=== PATIENT | female | born 1965 | race Caucasian/White ===

== ENCOUNTER 2017-01-27 01:04 | Emergency (ER) | payer OTHER ==
[~2017-01-27] VITALS: Ht 175.3 cm; Wt 113.5 kg
[~2017-01-27 01:04] MED LIST: ALBUAER2; ANT25 PO; AZITTAB PO; BCPILLS; BCPILLS PO; CYM60 PO; ELET40TA PO; ERGO1CAP35 PO; FLX10 PO; LRT5 PO; ONDA4TAB46 PO; TRZUNK PO; ZMG5 PO
[2017-01-27 01:05] VITALS: TEMP 36.7; Ht 175.3 cm; Wt 113.5 kg
[2017-01-27] MEDS ORDERED: ACETAMINOPHEN 500 MG TAB PO STA (01:21)
--- NOTE | 2017-01-27 01:38 | EMERGENCY ROOM VISIT NOTE ---
History Report prepared by Conchis: Ronaldo Serrano Under the Supervision of: Dr. Dipti Gaspar D.O. First contact with patient: 01:12 Chief Complaint: FALL Stated Complaint: FELL-HURT LEFT LEG,HIT HEAD History of Present Illness The patient is a 51 year old female who presents to the Emergency Room following a falling episode that occurred shortly prior to arrival. The patient states that she tripped over a dog gate in her home and fell onto her left knee. She also hit her head on the corner of the wall during the fall. The patient denies any loss of consciousness from hitting her head. She is currently complaining of pain in her left leg from her knee to her ankle, and denies any other injuries at this time. Source of History: patient Onset: Shortly OPTOMETRIC ASSISTANT Position: knee (left) Quality: other (Fall, left knee pain) Associated Symptoms: No LOC Review of Systems See HPI for pertinent positives & negatives. A total of 10 systems reviewed and were otherwise negative. Past Medical & Surgical Medical Problems: (1) Migraines Family History Cancer Diabetes mellitus Hypertension Social History Smoking Status: Never Smoker Drug Use: none Marital Status: Housing Status: lives with significant other Occupation Status: employed Current/Historical Medications Scheduled Azithromycin (Z-Allen) (Zithromax (Z-Allen)), 250 MG PO DAILY Control Pills ( Control Pills), 1 TAB PO DAILY Cyclobenzaprine Hcl (Flexeril *), 10 MG PO TID PRN Duloxetine Hcl (Cymbalta *), 120 MG PO DAILY Eletriptan (Relpax), 40 MG PO DIRECTED Ergocalciferol (Vitamin D Cap), 1 TAB PO WK Hydrocodone/Acetaminophen 5MG/500MG (Vicodin 5MG/500MG), 1 TAB PO Q4H Meclizine (Antivert *), 25 MG PO TID PRN Ondansetron Hcl (Zofran), 4 MG PO Q6HR PRN Trazodone Hcl (Trazodone Unkown Dose), 225 MG PO HS Zolmitriptan (Zomig *), 5 MG PO PRN/UD Miscellaneous Medications Albuterol (Ventolin) Control Pills ( Control Pills) Allergies Coded Allergies: Penicillins (Unverified Allergy, Mild, 09/03/09) Sulfa Drugs (Unverified Allergy, Mild, 09/03/09) Ketorolac Tromethamine (Verified Allergy, Unknown, Unknown, 11/04/14) Physical Exam Vital Signs Date Time Temp Pulse Resp B/P (MAP) Pulse Ox O2 Delivery O2 Flow Rate FiO2 01/27/17 02:43 78 18 159/82 98 Room Air 01/27/17 01:05 36.7 88 18 140/86 95 Room Air Physical Exam HEENT: Head - There is a cephalohematoma on the right temporoparietal region of the scalp. Pupils are equal, round, and reactive to light. Extraocular eye muscles are intact and sclera are anicteric. Ears - bilaterally patent canals with no evidence of hemotympanum. Nose - moist nasal mucosa without evidence of trauma or discharge. Mouth - moist buccal mucosa with no trauma to the teeth or signs of malocclusion. Neck: The neck is supple and there is no pain to palpation over the posterior cervical spine and no obvious step-offs or deformities. There is no JVD or tracheal deviation. Chest: There are no signs of deformities, contusions or abrasions to the chest wall. There is no obvious crepitus or paradoxical chest rise. Heart: Regular, rate, and rhythm. There is a normal S1 and S2 with no murmurs, clicks, or gallops appreciated. Lungs: Clear to auscultation bilaterally with no wheezes, rales, or rhonchi. Abdomen: Soft, completely nontender, nondistended, with good bowel sounds. There is no sign of trauma such as contusions, abrasions or penetrations. There are no palpable pulsatile masses or hepatosplenomegaly. There is no guarding, rigidity, or rebound noted. Pelvis: Stable to rock and compression. Extremities: There is a contusion, abrasion, and edema to the left knee. There are easily palpable peripheral pulses. Neuro: The patient is awake and alert and easily able to follow commands. Muscle strength is 5 out of 5 in all 4 extremities. Otherwise, neuro exam is unremarkable. Back: The entire thoracic, lumbar, and sacral spine were palpated. There are no obvious step-offs or deformities noted. There are no obvious signs of trauma such as contusions abrasions penetrations noted to the back. Medical Decision & Procedures ER Provider Diagnostic Interpretation: Radiology results as stated below per my review and the radiologist's interpretation: LEFT KNEE 2 VIEWS CLINICAL HISTORY: Left knee injury. Fall. FINDINGS: AP and crosstable lateral views of left knee are obtained. No prior studies are available for comparison at the time of dictation. The skeletal structures are well mineralized. No fracture is seen. The joint spaces of the knee are well-maintained. There is no large joint effusion. The overlying soft tissues are within normal limits. IMPRESSION: No acute bony abnormality is seen in the left knee. Electronically signed by: Freddie Jain M.D. 01/27/2017 1:56 AM Dictated Date/Time: 01/27/2017 1:55 AM Medications Administered Medications (Trade) Dose Ordered Sig/Edgar Route Start Time Stop Time Status Last Admin Dose Admin Acetaminophen (Tylenol Tab) 1,000 mg NOW STAT PO 01/27/17 01:21 01/27/17 01:22 DC 01/27/17 01:28 1,000 MG Oxycodone/ Acetaminophen (Percocet 5/ 325MG Home Pack) 1 homepack UD ONCE PO 01/27/17 02:15 01/27/17 02:16 DC 01/27/17 02:37 1 HOMEPACK Procedure Medications Ordered: Tylenol, Oxycodone ED Course 0116: Past medical records reviewed. The patient was evaluated in room A11. A complete history and physical exam was performed. 0121: Ordered Tylenol 1000 mg PO. The patient went for plain x-rays of the left knee as described above. 0210: I reevaluated the patient at this time. She has had minimal relief with the Tylenol and requests something stronger to take home. I tried Ligamentous testing on the patient, which she could not tolerate. The patient will be discharged home on crutches to weight-bear as tolerated.. 0215: Ordered Oxycodone 1 homepack PO. Medical Decision The patient is a 51 year old female who presents to the Emergency Department with left knee pain following a falling episode. Differential Diagnosis include; Sprained knee, fracture, concussion, closed head injury, and skull fracture Blood Pressure Screening: Patient was found to have a slightly elevated blood pressure due to circumstances and pain. I do not believe that the patient requires hypertension monitoring. I attest that I have personally reviewed the patient's current medication list. This is a 51-year-old female patient who fell landing on her left knee and striking her head. She didn't loss of consciousness. She had no altered mental status following the fall. X-ray shows no evidence of an acute fracture. I was unable to perform ligamentous testing on the patient because of her pain. Ice was applied to the knee. She was given a Percocet home pack to use for pain. She will use crutches until she can bear weight. I've given her follow-up instructions for orthopedics if necessary. Impression Primary Impression: Contusion of left knee Additional Impression: Closed head injury without concussion Scribe Attestation The scribe's documentation has been prepared under my direction and personally reviewed by me in its entirety. I confirm that the note above accurately reflects all work, treatment, procedures, and medical decision making performed by me. Departure Information Dispostion Home / Self-Care Referrals Srinivas German D.O. (PCP) Forms HOME CARE DOCUMENTATION FORM, IMPORTANT VISIT INFORMATION Patient Instructions My [facility] Additional Instructions Rest. Use crutches until able to bear og on the left knee. Follow up with Ortho by Sunday or Sunday if pain persists. Use percocet - 1 tab. every 4 hours for pain. Otherwise use tylenol Problem Qualifiers Primary Impression: Contusion of left knee Encounter type: initial encounter Qualified Codes: S80.02XA - Contusion of left knee, initial encounter Additional Impression: Closed head injury without concussion Encounter type: initial encounter Qualified Codes: S09.90XA - Unspecified injury of head, initial encounter
--- NOTE | 2017-01-27 01:57 | DIAGNOSTIC IMAGING REPORT ---
LEFT KNEE 2 VIEWS CLINICAL HISTORY: Left knee injury. Fall. FINDINGS: AP and crosstable lateral views of left knee are obtained. No prior studies are available for comparison at the time of dictation. The skeletal structures are well mineralized. No fracture is seen. The joint spaces of the knee are well-maintained. There is no large joint effusion. The overlying soft tissues are within normal limits. IMPRESSION: No acute bony abnormality is seen in the left knee. Electronically signed by: Freddie Jain M.D. 01/27/2017 1:56 AM Dictated Date/Time: 01/27/2017 1:55 AM
[2017-01-27] MEDS ORDERED: PERCOCET HOME PACK PO ONE (02:15)
[2017-01-27 02:43] VITALS: BP 159/82; PULSE 78; O2SAT 98
== END 2017-01-27 02:44 | disposition home or self-care (01) ==
LOC: C.EDB 01:05 → C.EDA 02:44
DX: S80.02XA Contusion of left knee, initial encounter (principal); S00.03XA Contusion of scalp, initial encounter; W18.09XA Striking against other object with subsequent fall, initial encounter; Y92.009 Unspecified place in unspecified non-institutional (private) residence as the place of occurrence of the external cause; Z80.9 Family history of malignant neoplasm, unspecified; Z83.3 Family history of diabetes mellitus; Z82.49 Family history of ischemic heart disease and other diseases of the circulatory system; Z79.3 Long term (current) use of hormonal contraceptives; Z79.899 Other long term (current) drug therapy

== ENCOUNTER 2017-01-27 23:22 | Emergency (ER) | payer OTHER ==
[~2017-01-27] VITALS: Ht 175.3 cm; Wt 98.0 kg
[2017-01-27 23:39] VITALS: TEMP 36.7; Ht 175.3 cm; Wt 98.0 kg
[2017-01-27] MEDS ORDERED: SODIUM CHLORIDE 0.9% 500ML 500 ML IV STA (23:49)
[2017-01-27] MEDS ORDERED: HYDROmorphone INJ 2 MG/ML SYR/VIAL IV STA (23:49)
[2017-01-27] MEDS ORDERED: ONDANSETRON INJ 2 MG/ML 2 ML VIAL IV STA (23:49)
[2017-01-27] MEDS ORDERED: MoRPHine SULFATE 10 MG/ML CARP/VIAL IV STA (23:58)
[2017-01-28] MEDS ORDERED: MoRPHine SULFATE 4 MG/ML 1 ML CARP\\VIAL ONE (00:04)
[2017-01-28] MEDS ORDERED: MoRPHine SULFATE 2 MG/ML CARP ONE (00:04)
[2017-01-28 00:20] LABS: BASO % 0.3 %; BASO ABS # 0.02 K/uL (0-0.2); COMPLETE YES; IG% 0.1 %; LYMPH ABS # 2.33 K/uL (1.2-3.4); MEAN CELL VOLUME 85.7 fL (80-100); MEAN CORPUSCULAR HEMOGLOBIN 27.8 pg (25-34); MEAN CORPUSCULAR HGB CONC 32.5 g/dl (32-36); MEAN PLATELET VOLUME 10.8 fL (7.4-10.4); MONO % 7.1 %; NEUT % 57.5 %; PLATELET COUNT 339 K/uL (130-400); RED BLOOD COUNT 4.67 M/uL (4.2-5.4); WHITE BLOOD COUNT 7.76 K/uL (4.8-10.8)
--- NOTE | 2017-01-28 00:27 | EMERGENCY ROOM VISIT NOTE ---
History Report prepared by Conchis: Rox Deras Under the Supervision of: Dr. Dipti Gaspar D.O. First contact with patient: 23:33 Chief Complaint: HEADACHE Stated Complaint: VOMITING, SEVERE HEADACHE History of Present Illness The patient is a 51 year old female who presents to the Emergency Room with complaints of a worsening headache for the past 1 day. She is accompanied by her . The patient was seen here in the ED yesterday after a fall. She tripped over a dog gate and fell onto her left knee, hitting her right forehead off a wall. She did not sustain any LOC. At the ED visit last night, she had her left knee X-Rayed, was placed on crutches and discharged home. The patient reports she started experiencing a headache this afternoon and her pain has been worsening. She rates her pain as a 10/10 in severity. She is also nauseous and started vomiting earlier today. Percocet at 2200 has provided minimal relief. Source of History: patient Onset: Yesterday Position: head Symptom Intensity: 10/10 Timing: worsening Modifying Factors (Relieving): narcotics (Percocet) Associated Symptoms: + nausea, + vomiting Review of Systems See HPI for pertinent positives & negatives. A total of 10 systems reviewed and were otherwise negative. Past Medical & Surgical Medical Problems: (1) Migraines Family History Cancer Diabetes mellitus Hypertension Social History Smoking Status: Never Smoker Smokeless Tobacco Use: No Alcohol Use: occasionally Drug Use: none Marital Status: Housing Status: lives with significant other Occupation Status: employed Current/Historical Medications Scheduled Azithromycin (Z-Allen) (Zithromax (Z-Allen)), 250 MG PO DAILY Control Pills ( Control Pills), 1 TAB PO DAILY Cyclobenzaprine Hcl (Flexeril *), 10 MG PO TID PRN Duloxetine Hcl (Cymbalta *), 120 MG PO DAILY Eletriptan (Relpax), 40 MG PO DIRECTED Ergocalciferol (Vitamin D Cap), 1 TAB PO WK Hydrocodone/Acetaminophen 5MG/500MG (Vicodin 5MG/500MG), 1 TAB PO Q4H Meclizine (Antivert *), 25 MG PO TID PRN Ondansetron Hcl (Zofran), 4 MG PO Q6HR PRN Trazodone Hcl (Trazodone Unkown Dose), 225 MG PO HS Zolmitriptan (Zomig *), 5 MG PO PRN/UD Miscellaneous Medications Albuterol (Ventolin) Control Pills ( Control Pills) Allergies Coded Allergies: Penicillins (Unverified Allergy, Mild, 09/03/09) Sulfa Drugs (Unverified Allergy, Mild, 09/03/09) Ketorolac Tromethamine (Verified Allergy, Unknown, Unknown, 11/04/14) Physical Exam Vital Signs Date Time Temp Pulse Resp B/P (MAP) Pulse Ox O2 Delivery O2 Flow Rate FiO2 01/28/17 02:13 71 18 121/75 93 01/27/17 23:39 36.7 73 19 149/90 95 Room Air Physical Exam General: The patient is photophobic on exam. HEENT: Head - normocephalic and atraumatic Pupils are equal, round, and reactive to light. Extraocular eye muscles are intact, and sclera are anicteric. Nose - moist nasal mucosa without discharge. Mouth - moist buccal mucosa. Oropharynx is nonerythematous and there is no tonsillar exudate or edema noted. Neck: Supple; no JVD, nuchal rigidity, cervical lymphadenopathy. Heart: Regular rate and rhythm. There is a normal S1 and S2 with no murmurs, clicks, or gallops appreciated. Lungs: Clear to auscultation bilaterally with no wheezes, rales, or rhonchi. Abdomen: Soft, completely nontender, nondistended, with good bowel sounds. There are no palpable pulsatile masses or hepatosplenomegaly. There is no guarding, rigidity, or rebound noted. Extremities: Contusion to left knee. There are easily palpable peripheral pulses. Skin: warm and dry with good turgor and no rashes. Medical Decision & Procedures ER Provider Diagnostic Interpretation: Radiology results as stated below per my review and interpretation: L-SPINE X-RAY No obvious compression fracture or disc space narrowing. Mild degenerative changes seen. Laboratory Results 01/27/17 23:52 Red Blood Count 4.67, Mean Corpuscular Volume 85.7, Mean Corpuscular Hemoglobin 27.8, Mean Corpuscular Hemoglobin Concent 32.5, Mean Platelet Volume 10.8, Neutrophils (%) (Auto) 57.5, Lymphocytes (%) (Auto) 30.0, Monocytes (%) (Auto) 7.1, Eosinophils (%) (Auto) 5.0, Basophils (%) (Auto) 0.3, Neutrophils # (Auto) 4.46, Lymphocytes # (Auto) 2.33, Monocytes # (Auto) 0.55, Eosinophils # (Auto) 0.39, Basophils # (Auto) 0.02 01/27/17 23:52 Test 01/27/17 23:52 White Blood Count 7.76 K/uL (4.8-10.8) Red Blood Count 4.67 M/uL (4.2-5.4) Hemoglobin 13.0 g/dL (12.0-16.0) Hematocrit 40.0 % (37-47) Mean Corpuscular Volume 85.7 fL (80-100) Mean Corpuscular Hemoglobin 27.8 pg (25-34) Mean Corpuscular Hemoglobin Concent 32.5 g/dl (32-36) Platelet Count 339 K/uL (130-400) Mean Platelet Volume 10.8 fL (7.4-10.4) Neutrophils (%) (Auto) 57.5 % Lymphocytes (%) (Auto) 30.0 % Monocytes (%) (Auto) 7.1 % Eosinophils (%) (Auto) 5.0 % Basophils (%) (Auto) 0.3 % Neutrophils # (Auto) 4.46 K/uL (1.4-6.5) Lymphocytes # (Auto) 2.33 K/uL (1.2-3.4) Monocytes # (Auto) 0.55 K/uL (0.11-0.59) Eosinophils # (Auto) 0.39 K/uL (0-0.5) Basophils # (Auto) 0.02 K/uL (0-0.2) RDW Standard Deviation 45.8 fL (36.4-46.3) RDW Coefficient of Variation 14.5 % (11.5-14.5) Immature Granulocyte % (Auto) 0.1 % Immature Granulocyte # (Auto) 0.01 K/uL (0.00-0.02) Anion Gap 7.0 mmol/L (3-11) Est Creatinine Clear Calc Drug Dose 97.5 ml/min Estimated GFR () 91.3 Estimated GFR (Non- 78.8 BUN/Creatinine Ratio 12.2 (10-20) Calcium Level 9.2 mg/dl (8.5-10.1) Laboratory results per my review. Medications Administered Medications (Trade) Dose Ordered Sig/Edgar Route Start Time Stop Time Status Last Admin Dose Admin Sodium Chloride 500 ml @ 999 mls/hr Q31M STAT IV 01/27/17 23:49 01/28/17 00:19 DC 01/27/17 23:57 999 MLS/HR Ondansetron HCl (Zofran Inj) 4 mg NOW STAT IV 01/27/17 23:49 01/27/17 23:52 DC 01/27/17 23:55 4 MG Morphine Sulfate (MoRPHine SULFATE INJ) 6 mg NOW STAT IV 01/27/17 23:58 01/28/17 00:01 DC 01/28/17 00:06 6 MG Procedure Zofran IV, NSS IV, Morphine Sulfate IV. ED Course 2345: Past medical records reviewed. The patient was evaluated in room B10. A complete history and physical exam was performed. An IV lock was initiated. 2349: Zofran 4 mg IV, NSS 500 ml @ 999 mls/hr IV and Morphine Sulfate 6 mg IV. 2355: I reevaluated the patient. She reports she has a longstanding history of migraine headaches but has not had one in a long time. She used to take injections at home for her migraines. 0150: I reevaluated the patient. Her nausea is almost completely gone and her headache is improving. I discussed her results and discharge instructions and she verbalized complete understanding and agreement. Medical Decision I attest that I have personally reviewed the patient's current medication list. Patient was found to have an elevated blood pressure on initial presentation but it returned to normal prior to discharge and does not require follow up. The patient is a 51 year old female who presents to the ED with a headache. Differential diagnosis includes: tension headache, migraine, skull fracture, intracranial hemorrhage. The CT scan of the brain was negative. This may be secondary to a migraine. The patient seems to be feeling somewhat better. I have asked her to rest. Impression Primary Impression: Migraine Additional Impression: Closed head injury Scribe Attestation The scribe's documentation has been prepared under my direction and personally reviewed by me in its entirety. I confirm that the note above accurately reflects all work, treatment, procedures, and medical decision making performed by me. Departure Information Dispostion Home / Self-Care Referrals Srinivas German D.O. (PCP) Patient Instructions Headaches Migraine and Tension, Headaches Self Care, My [facility] [address] Additional Instructions Rest with your head elevated. Keep yourself well-hydrated. Follow up on Sunday with your PCP if migraine persists Problem Qualifiers
[2017-01-28 00:29] LABS: BUN/CREATININE RATIO 12.2 (10-20); CALCIUM 9.2 mg/dl (8.5-10.1); CREATININE 0.86 mg/dl (0.60-1.20); POTASSIUM 3.9 mmol/L (3.5-5.1)
--- NOTE | 2017-01-28 01:15 | DIAGNOSTIC IMAGING REPORT ---
CT SCAN OF THE BRAIN WITHOUT IV CONTRAST CLINICAL HISTORY: Head injury. Nausea and vomiting. COMPARISON STUDY: No priors. TECHNIQUE: Unenhanced axial CT scan of the brain is performed from the vertex to the skull base. Automated dose control exposure was utilized. CT DOSE: 614.27 mGy.cm FINDINGS: Brain parenchyma: The brain parenchyma is normal in appearance. There is no hemorrhage, mass effect, or evidence of acute territorial ischemia by CT criteria. Ortiz-white matter is preserved. No extra-axial fluid collection is seen. Ventricles, sulci, cisterns: Normal in configuration. Intracranial vasculature: The visualized intracranial vasculature at the skull base is normal in appearance. Calvarium: There is no depressed calvarial fracture. Soft tissues: A punctate calcified sialolith is noted in the left parotid gland. Sinuses and mastoids: The visualized paranasal sinuses are clear. The mastoid air cells are well pneumatized. Orbits: The bony orbits are grossly intact. IMPRESSION: There is no hemorrhage, mass effect, or evidence of acute territorial ischemia by CT criteria. Electronically signed by: Freddie Jain M.D. 01/28/2017 1:13 AM Dictated Date/Time: 01/28/2017 1:12 AM
[2017-01-28 02:13] VITALS: BP 121/75; PULSE 71; O2SAT 93
== END 2017-01-28 02:14 | disposition home or self-care (01) ==
LOC: C.EDB 23:23
DX: G43.909 Migraine, unspecified, not intractable, without status migrainosus (principal); S09.90XD Unspecified injury of head, subsequent encounter; W01.0XXD Fall on same level from slipping, tripping and stumbling without subsequent striking against object, subsequent encounter; Z80.9 Family history of malignant neoplasm, unspecified; Z83.3 Family history of diabetes mellitus; Z82.49 Family history of ischemic heart disease and other diseases of the circulatory system; Z79.3 Long term (current) use of hormonal contraceptives; Z79.899 Other long term (current) drug therapy